=== PATIENT | male | born 1980 | race Caucasian/White ===

== ENCOUNTER 2022-07-05 15:54 | Emergency (ER) | payer MEDICAID, SELFPAY ==
[2022-07-05 16:00] VITALS: BP 132/79; PULSE 67; RESP 18; TEMP 36.6; O2SAT 98; BMI 35.5
--- NOTE | 2022-07-05 16:50 | ED.GENADULT ---
HPI - General Adult General Time Seen by Provider: 16:51 Date Seen: 07/05/22 Chief complaint: Skin/Abscess/Foreign Body Stated complaint: Issues with heart Time Seen by Provider: 07/05/22 15:58 Source: patient History of Present Illness HPI narrative: Reza is s 41-year-old male with no real past medical history presents emerged department with a skin abscess. Patient states that over the last 3 days he has had a skin abscess that is increased in size and pain on the upper left chest area, there has been increased redness as well, no drainage or bleeding, has been tender to touch. No history of any MRSA. He has not had anything like this in the past. Denies any fevers or chills he is otherwise doing well. No other concerns at this time. Review of Systems Status of ROS: Reports: 10 or more systems reviewed and unremarkable except as noted in History and below [facility] Social History Smoking Status: Never smoker Do you use any of these nicotine containing products: None Second hand tobacco smoke exposure: No How often do you have a drink containing alcohol: monthly or less How many standard drinks containing alcohol do you have on a typical day: 1 or 2 How often do you have six or more drinks on one occasion: Never AUDIT-C Alcohol total score: 1 Non-prescribed substance use: denies use service: No Exam Const: Vital Signs, click to edit/add: Vital Signs - 24 hr 07/05/22 16:00 Temperature 98 F Pulse Rate [Pulse Oximeter] 67 Respiratory Rate 18 Blood Pressure [Ri ght Upper Arm] 132/79 Pulse Oximetry 98 Oxygen Delivery Me thod Room Air Common normals: no apparent distress and oriented x3 HENMT: Common normals: normocephalic Head and scalp: normocephalic Eye: Common normals: PERRL Pupil: PERRL Neck & C-Spine: Common normals: full ROM Chest: Other: 3 cm skin abscess just above the left nipple, there is induration and fluctuance, surrounding erythema, tender to palpation Resp: Common normals: normal respiratory effort and clear to auscultation bilaterally Auscultation: clear to auscultation bilaterally Cardio: Common normals: S1 normal heart sound and S2 normal heart sound Heart sounds: S1 normal and S2 normal Back & Pelvis: Common normals: no thoracic nor lumbar tenderness Extremity: Common normals: normal to inspection Neuro: Common normals: oriented x3 Course Course Hospital Course: 4:15 PM: Workup will include incision and drainage. Likely obtain a wound culture. Please see procedure note. Reevaluation(s) Reevaluation #1: Incision and drainage complete, patient did well, wound culture sent, will be given additional cefuroxime 500 mg b.i.d. over the next 7 days for the surrounding erythema. He should follow up with his primary care provider over the next 7-10 days for recheck, return precautions given. Time: 16:53 Vital Signs Vital signs: Initial Vital Signs Temperature 98 F 07/05/22 16:00 Temperature Source Temporal Artery Scan 07/05/22 16:00 Pulse Rate 67 07/05/22 16:00 Pulse Rhythm 07/05/22 16:00 Respiratory Rate 18 07/05/22 16:00 Blood Pressure 132/79 07/05/22 16:00 Blood Pressure Mean 96 07/05/22 16:00 Blood Pressure Position Supine 07/05/22 16:00 Pulse Oximetry 98 07/05/22 16:00 Oxygen Delivery Method 07/05/22 16:00 Vital Signs Temperature 98 F 07/05/22 16:00 Pulse Rate 67 07/05/22 16:00 Respiratory Rate 18 07/05/22 16:00 Blood Pressure 132/79 07/05/22 16:00 Pulse Oximetry 98 07/05/22 16:00 Oxygen Delivery Method 07/05/22 16:00 Temperature 98 F 07/05/22 16:00 Pulse Rate 67 07/05/22 16:00 Respiratory Rate 18 07/05/22 16:00 Blood Pressure 132/79 07/05/22 16:00 Pulse Oximetry 98 07/05/22 16:00 Oxygen Delivery Method 07/05/22 16:00 Discharge Plan Discharge Clinical Impression: Abscess of chest wall Patient Disposition: Home, Self-Care Condition: Improved Instructions: Abscess (ED) Additional Instructions: To take the antibiotics twice daily for the next 7 days. Follow-up with primary care provider over the next 7-10 days as needed. Return precautions given. Activity Level: Activity as Tolerated Follow Up/Referrals: [facility] [Other] Stand Alone Forms: [facility] Info Instructions Procedures I/D Type: abscess Site: chest Pre procedure diagnosis: chest wall abscess Post procedure diagnosis: chest wall abscess Written consent by: patient Site marking: site marked Verification/time out: correct patient Name of person performing procedure: Cory Ruano Anesthesia I&D: lidocaine 1% and with Epi Amount of anesthesia used (mls): 2 Side (if applicable): left Technique: incised with #11 blade Amount of fluid expressed (mL): 10 Irrigation: No Packing used?: none Estimated blood loss (if any): less than 5mls Specimens removed (if any): wound culture. Conclusion: patient tolerated procedure
== END 2022-07-05 17:06 | disposition home or self-care (01) ==
PROVIDERS: Emergency Provider Student in an Organized Health Care Education/Training Program
DX: L02.213 Cutaneous abscess of chest wall (principal)
CPT/HCPCS: 10060; 87070; 87186; 99283; 99284

== ENCOUNTER 2022-07-12 12:28 | Emergency (ER) | payer MEDICAID, SELFPAY ==
[2022-07-12 12:48] VITALS: BP 132/85; PULSE 74; RESP 16; TEMP 37.1; O2SAT 96; BMI 32.7
--- NOTE | 2022-07-12 13:23 | ED.SKABFB ---
HPI - Skin/Abscess/Foreign Bdy General Chief complaint: Skin/Abscess/Foreign Body Stated complaint: Pimple on nose/painful/swollen Time Seen by Provider: 07/12/22 13:03 History of Present Illness HPI narrative: 41 yo man with c/o painful and swollen nose. admits that 2-3 days ago pulled a nose hair. Yesterday right side nose and area began swelling and has had increasing pain. Area pain as well. He says there is a pustule in his nose now. thinks it might need draining. Ibuprofen, acetaminophen does not help. Can not sleep. no fever. no pain with eye movement. no visual changes. new soreness and maybe swelling in the left upper neck area. no recurrent infections. Related Data Previous Rx's Medication Instructions Recorded doxycycline monohydrate 100 mg 100 mg PO BID for infection 8 days 07/12/22 capsule #16 caps hydrocodone 5 mg-acetaminophen 325 1 - 2 tab PO Q4-6H PRN pain #12 07/12/22 mg tablet tabs mupirocin 2 % topical ointment 1 applic topical TID infection 7 07/12/22 days #7 grams Review of Systems Status of ROS: Reports: 6 or more systems reviewed and unremarkable except as noted in History and below [facility] Social History Smoking Status: Never smoker Do you use any of these nicotine containing products: None Second hand tobacco smoke exposure: No How often do you have a drink containing alcohol: monthly or less How many standard drinks containing alcohol do you have on a typical day: 1 or 2 How often do you have six or more drinks on one occasion: Never AUDIT-C Alcohol total score: 1 Non-prescribed substance use: denies use service: No Exam Narrative: Exam Narrative: pleasant. carefully casually groomed. breathing easily. no stridor cn 2-12 intact, eomi is full and nt. no scleral injection. neck supple. uncomfortable to palp in left upper anterior lymph chain but without significant swelling/lymphadenopathy. skin is warm and dry. nose is mild to mod swollen jodee at the left and mild erythema extends on to the face about an inch. soreness up to the zygoma. inside the left nare is visible mod swelling superior and lateral and extending to the bridge. 2 very small points of purulence are visible at the lateral bina internally. very tender to palp. Const: Vital Signs, click to edit/add: Vital Signs - 24 hr 07/12/22 12:48 Temperature 98.8 F Pulse Rate [Pulse Oximeter] 74 Respiratory Rate 16 Blood Pressure [Le ft Upper Arm] 132/85 Pulse Oximetry 96 Oxygen Delivery Me thod Room Air Documenting provider has reviewed patient's vital signs: yes Course Course Hospital Course: benzocaine spray applied to cotton ball and placed into left nare. this provides some relief of discomfort. Consultations Consultation #1: contacted ENT to confirm tx and follow up. rec'd for oral abx and warm packs and maybe bactroban Vital Signs Vital signs: Initial Vital Signs Temperature 98.8 F 07/12/22 12:48 Temperature Source Temporal Artery Scan 07/12/22 12:48 Pulse Rate 74 07/12/22 12:48 Pulse Rhythm 07/12/22 12:48 Pulse Strength 3+ Normal 07/12/22 12:48 Respiratory Rate 16 07/12/22 12:48 Blood Pressure 132/85 07/12/22 12:48 Blood Pressure Mean 100 07/12/22 12:48 Blood Pressure Position Sitting 07/12/22 12:48 Pulse Oximetry 96 07/12/22 12:48 Oxygen Delivery Method 07/12/22 12:48 Vital Signs Temperature 98.8 F 07/12/22 12:48 Pulse Rate 74 07/12/22 12:48 Respiratory Rate 16 07/12/22 12:48 Blood Pressure 132/85 07/12/22 12:48 Pulse Oximetry 96 07/12/22 12:48 Oxygen Delivery Method 07/12/22 12:48 Temperature 98.8 F 07/12/22 12:48 Pulse Rate 74 07/12/22 12:48 Respiratory Rate 16 07/12/22 12:48 Blood Pressure 132/85 07/12/22 12:48 Pulse Oximetry 96 07/12/22 12:48 Oxygen Delivery Method 07/12/22 12:48 MDM - Skin/Abscess/Foreign Bdy MDM Narrative Medical decision making narrative: as requested can see if can obtain/release purulence. anesthetized as above. had offered regional injection of anesthetic as well. Mr. Bay preferred topical punctured with needle the 2 points of purulence but only small amount of blood obtained. did not place needle deep nor apply great deal of pressure. I'm not convinced that there is relievable abscess here. this all was quite painful but Mr. Bay tolerated it quite well. placed bacitracin. will though need to make sure staph, potentially mrsa, is covered. I don't believe that iv abx needed at this time. Discharge Plan Discharge Clinical Impression: Cellulitis of external nose Patient Disposition: Home, Self-Care Condition: Stable Additional Instructions: You will be receiving a different antibiotic ointment to apply 3 times daily. If getting markedly more red/swollen/painful/painful eye movement/fever, be seen. In this case return to the emergency department. ENT doctor available locally through [facility] is Dr. Braun In the future it would be better to trim hairs instead of pluck them. Can take up to 800 mg of ibuprofen per dose combined with the [place] prescribed today. Apply warm moist packs to this area 2-3 times daily over the next few days. Recibir? neeraj crema antibi?lynsey diferente para aplicar 3 veces al d?a. Si se pone notablemente m?s dixon/hinchado/doloroso/movimiento ocular doloroso/fiebre, regrese a la willi de emergencia. El m?dico otorrinolaring?logo disponible localmente a desiree?s de [facility] es el Dr. Braun En el futuro ser?a mejor recortar los pelos en lugar de arrancarlos. Puede kurt hasta 800 mg de ibuprofeno por dosis combinado con el [place] recetado hoy. Aplique compresas h?medas y tibias en esta ?ann 2 o 3 veces al d?a elliott los pr?ximos d?as. Prescriptions: New mupirocin 2 % ointment 1 applic topical TID 7 Days Qty: 7 0RF Rx Instructions: apple light layer into your nose hydrocodone-acetaminophen 5-325 mg tablet 1 - 2 tab PO Q4-6H PRN (Reason: pain) Qty: 12 0RF doxycycline monohydrate 100 mg capsule 100 mg PO BID 8 Days Qty: 16 0RF Follow Up/Referrals: Provider,Not a Local [Primary Care Provider] - Stand Alone Forms: [facility] Info Instructions
== END 2022-07-12 14:23 | disposition home or self-care (01) ==
PROVIDERS: Emergency Provider Family Medicine
DX: J34.0 Abscess, furuncle and carbuncle of nose (principal)
CPT/HCPCS: 99282; 99283

== ENCOUNTER 2023-01-29 21:04 | Emergency (ER) | payer MEDICAID, SELFPAY ==
[2023-01-29 21:16] VITALS: BP 143/84; PULSE 84; RESP 18; TEMP 37.2; O2SAT 99; BMI 34.0
[2023-01-29 22:19] VITALS: BP 135/78; PULSE 87; RESP 18; TEMP 36.9; O2SAT 99
[2023-01-29 22:20] VITALS: BP 135/78; PULSE 87; RESP 18; TEMP 36.9
--- NOTE | 2023-01-30 14:54 | ED_ITS ---
HPI - General Adult General Chief complaint: Skin/Abscess/Foreign Body Stated complaint: Fever, found pimple worried infected Time Seen by Provider: 01/29/23 21:39 History of Present Illness HPI narrative: 42-year-old man presenting to the emergency department with concern of infection in left armpit side area. Has had increasing redness and some swelling over the last couple of days. Increasing tenderness. Is also describing tenderness in the left neck area without sore throat that he feels is somehow connected to what is going on at his side. No fever. No drainage. They did does recount how he did have a, with sounds like a cyst, had gotten inflamed ultimately excised in the left upper chest/nipple area. 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 No treatments. Related Data Previous Rx's Medication Instructions Recorded cephalexin 500 mg capsule 500 mg PO TID 9 days #27 caps 01/29/23 Allergies Allergy/AdvReac Type Severity Reaction Status Date / Time No Known Drug Allergies Allergy Verified 01/29/23 21:19 Review of Systems Status of ROS: Reports: 6 or more systems reviewed and unremarkable except as noted in History and below [facility] Medical History No significant past medical history Surgical History No significant past surgical history Social History Smoking Status: Never smoker Do you use any of these nicotine containing products: None Second hand tobacco smoke exposure: No How often do you have a drink containing alcohol: monthly or less How many standard drinks containing alcohol do you have on a typical day: 1 or 2 How often do you have six or more drinks on one occasion: Never AUDIT-C Alcohol total score: 1 Non-prescribed substance use: denies use service: No Exam Narrative: Exam Narrative: Pleasant. NAD. Swallowing without difficulty. Breathing easily. Oropharynx is unremarkable. Neck is supple without appreciable lymphadenopathy. Left lower axillary upper chest wall area has a an inch and half oval area of erythema with palpable 1/2-3/4 inch firm tender swelling. I do not appreciate fluctuance. Not clear punctum. No purulence evident. There are some skin tags in the area. There is a small scar superior and lateral to the left areola where apparently had I&D done in the past. Const: Vital Signs, click to edit/add: Vital Signs - 24 hr 01/29/23 21:16 01/29/23 22:19 01/29/23 22:20 Temperature 99.0 F 98.4 F 98.4 F Pulse Rate [Right Pulse Oximeter] 84 87 87 Respiratory Rate 18 18 18 Blood Pressure [Ri ght Upper Arm] 143/84 H 135/78 135/78 Pulse Oximetry 99 99 Oxygen Delivery Me thod Room Air Room Air Documenting provider has reviewed patient's vital signs: yes Course Vital Signs Vital signs: Initial Vital Signs Temperature 99.0 F 01/29/23 21:16 Temperature Source Temporal Artery Scan 01/29/23 21:16 Pulse Rate 84 01/29/23 21:16 Respiratory Rate 18 01/29/23 21:16 Blood Pressure 143/84 H 01/29/23 21:16 Blood Pressure Mean 103 01/29/23 21:16 Blood Pressure Position Sitting 01/29/23 21:16 Pulse Oximetry 99 01/29/23 21:16 Oxygen Delivery Method Room Air 01/29/23 21:16 Vital Signs Temperature 99.0 F 01/29/23 21:16 Pulse Rate 84 01/29/23 21:16 Respiratory Rate 18 01/29/23 21:16 Blood Pressure 143/84 H 01/29/23 21:16 Pulse Oximetry 99 01/29/23 21:16 Oxygen Delivery Method Room Air 01/29/23 21:16 Temperature 98.4 F 01/29/23 22:20 Pulse Rate 87 01/29/23 22:20 Respiratory Rate 18 01/29/23 22:20 Blood Pressure 135/78 01/29/23 22:20 Pulse Oximetry 99 01/29/23 22:19 Oxygen Delivery Method Room Air 01/29/23 22:19 Medical Decision Making MDM Narrative Medical decision making narrative: I do not get a sense that this is an abscess yet. I do not think it is drainable. No treatments have been attempted. I would least be using topical antibiotic ointment and protecting from further irritation on the job. On the verge of needing oral antibiotics perhaps. Would monitor closely. Warm pack. Does not seem to be a situation where he suffers from hidradenitis suppurative or similar. See patient discharge plan. Discharge Plan Discharge Clinical Impression: Localized infection Patient Disposition: Home, Self-Care Condition: Stable Additional Instructions: As discussed, I would place warm moist packs to this area a few times daily over the next few days. If seems much worse in the next couple of days, an antibiotic will be waiting for you at your pharmacy. Keep protected with a large Band-Aid and change daily. Use antibiotic ointment for now. I think persistent irritation has contributed to this development. If seems to be expanding and with a softening center, might then be a candidate to be cut open. [place] se discuti?, colocar?a paquetes h?medos calientes en esta ?ann varias veces al d?a elliott los pr?ximos d?as. Si parece mucho peor en los pr?ximos d?as, un antibi?garry lo estar? esperando en negrete farmacia. Mant?ngase protegido con neeraj curita madison y c?mbiese diariamente. Use hung?ento antibi?garry por ahora. Creo que la irritaci?n persistente corona contribuido a jazmin desarrollo. Si parece estar expandi?ndose y con un centro suavizante, entonces podr?a ser un candidato para ser cortado. Prescriptions: New cephalexin 500 mg capsule 500 mg PO TID 9 Days Qty: 27 0RF Follow Up/Referrals: Provider,Not a Local [Primary Care Provider] - Stand Alone Forms: [facility] Info Instructions
== END 2023-01-29 22:20 | disposition home or self-care (01) ==
PROVIDERS: Emergency Provider Family Medicine
DX: L08.9 Local infection of the skin and subcutaneous tissue, unspecified (principal)
CPT/HCPCS: 99282; 99283

== ENCOUNTER 2023-05-03 22:30 | Emergency (ER) | payer MEDICAID, SELFPAY ==
[2023-05-03 22:48] VITALS: BP 128/76; PULSE 68; RESP 18; TEMP 36.6; O2SAT 96; BMI 35.5
--- NOTE | 2023-05-03 23:05 | ED_ITS ---
HPI - Extremity Injury (Lower) General Chief Complaint: Extremity Pain/Injury, Lower Stated Complaint: left leg pain Time Seen by Provider: 05/03/23 23:05 Related Data Previous Rx's Medication Instructions Recorded meclizine 25 mg tablet 25 mg PO QID #20 tabs 03/12/23 ondansetron HCl 4 mg tablet 4 mg PO Q6H #10 tabs 03/12/23 Allergies Allergy/AdvReac Type Severity Reaction Status Date / Time No Known Drug Allergies Allergy Verified 01/29/23 21:19 PFSH PFSH Medical History No significant past medical history Surgical History No significant past surgical history Social History Smoking Status: Never smoker Do you use any of these nicotine containing products: None Second hand tobacco smoke exposure: No How often do you have a drink containing alcohol: never How often do you have six or more drinks on one occasion: Never AUDIT-C Alcohol total score: 0 Non-prescribed substance use: denies use service: No Exam Const: Vital Signs, click to edit/add: Vital Signs - 24 hr 05/03/23 22:48 Temperature 97.9 F Pulse Rate [Pulse Oximeter] 68 Respiratory Rate 18 Blood Pressure [[facility] Upper Arm] 128/76 Pulse Oximetry 96 Course Vital Signs Vital signs: Initial Vital Signs Temperature 97.9 F 05/03/23 22:48 Temperature Source Temporal Artery Scan 05/03/23 22:48 Pulse Rate 68 05/03/23 22:48 Respiratory Rate 18 05/03/23 22:48 Blood Pressure 128/76 05/03/23 22:48 Blood Pressure Mean 93 05/03/23 22:48 Pulse Oximetry 96 05/03/23 22:48 Vital Signs Temperature 97.9 F 05/03/23 22:48 Pulse Rate 68 05/03/23 22:48 Respiratory Rate 18 05/03/23 22:48 Blood Pressure 128/76 05/03/23 22:48 Pulse Oximetry 96 05/03/23 22:48 Temperature 97.9 F 05/03/23 22:48 Pulse Rate 68 05/03/23 22:48 Respiratory Rate 18 05/03/23 22:48 Blood Pressure 128/76 05/03/23 22:48 Pulse Oximetry 96 05/03/23 22:48 Discharge Plan Discharge Prescriptions: No Action ondansetron HCl 4 mg tablet 4 mg PO Q6H Qty: 10 0RF meclizine 25 mg tablet 25 mg PO QID Qty: 20 0RF Follow Up/Referrals: Provider,Not a Local [Primary Care Provider] -
--- NOTE | 2023-05-03 23:06 | ED.GENADULT ---
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 He has pain in the left buttock area, goes down his leg into the calf. He denies any bowel or bladder issues. No numbness tingling. When he stands it is okay for while. The worst is if he tries to sit or changing positions. He denies any fevers chills, no significant history of problems like this before. No trauma or injury. No history of cancer. He is not diabetic, no chronic medications per questioning. He has been trying Tylenol and ibuprofen. He would like a work note for tomorrow if possible. He is concerned as to why this is happening. Symptoms have been present for about 5 days now and getting worse. Related Data Previous Rx's Medication Instructions Recorded meclizine 25 mg tablet 25 mg PO QID #20 tabs 03/12/23 ondansetron HCl 4 mg tablet 4 mg PO Q6H #10 tabs 03/12/23 Allergies Allergy/AdvReac Type Severity Reaction Status Date / Time No Known Drug Allergies Allergy Verified 01/29/23 21:19 Review of Systems Narrative: As per HPI [facility] PFS Medical History No significant past medical history Surgical History No significant past surgical history Social History Smoking Status: Never smoker Do you use any of these nicotine containing products: None Second hand tobacco smoke exposure: No How often do you have a drink containing alcohol: never How often do you have six or more drinks on one occasion: Never AUDIT-C Alcohol total score: 0 Non-prescribed substance use: denies use service: No Exam Const: Vital Signs, click to edit/add: Vital Signs - 24 hr 05/03/23 22:48 Temperature 97.9 F Pulse Rate [Pulse Oximeter] 68 Respiratory Rate 18 [facility] 128/76 Pulse Oximetry 96 Documenting provider has reviewed patient's vital signs: yes Common normals: no apparent distress, oriented x3, no limitations, healthy appearing, alert and well nourished General appearance: cooperative, comfortable (Unless he is making a position change, seems to have some discomfort), well kempt and well developed Nutritional appearance: overweight Other: Very pleasant 42-year-old gentleman. No midline tenderness over his back, no SI joint tenderness, no paraspinous tenderness. Can fully extend does seem to have some limitations with rotation and forward flexion. With the forward flexion he complains of pain in the back thigh on the left. He can heel and toe walk, gait is normal. Strength is 5/5 and symmetric in his lower extremities. States he feels normal light touch sensation. Neuro: Common normals: oriented x3 Sensorium/orientation: alert Psych: Appearance: well kempt Course Course Hospital Course: Did review with patient referral for physical therapy, he declines at this point and will follow up in clinic per his report. Vital Signs Vital signs: Initial Vital Signs Temperature 97.9 F 05/03/23 22:48 Temperature Source Temporal Artery Scan 05/03/23 22:48 Pulse Rate 68 05/03/23 22:48 Respiratory Rate 18 05/03/23 22:48 Blood Pressure 128/76 05/03/23 22:48 Blood Pressure Mean 93 05/03/23 22:48 Pulse Oximetry 96 05/03/23 22:48 Vital Signs Temperature 97.9 F 05/03/23 22:48 Pulse Rate 68 05/03/23 22:48 Respiratory Rate 18 05/03/23 22:48 Blood Pressure 128/76 05/03/23 22:48 Pulse Oximetry 96 05/03/23 22:48 Temperature 97.9 F 05/03/23 22:48 Pulse Rate 68 05/03/23 22:48 Respiratory Rate 18 05/03/23 22:48 Blood Pressure 128/76 05/03/23 22:48 Pulse Oximetry 96 05/03/23 22:48 Critical Care Time Critical Care Time Critical Care Time: No Discharge Plan Discharge Clinical Impression: Sciatica of left side Patient Disposition: Home, Self-Care Condition: Stable Instructions: Sciatica (ED), Lower Back Exercises (ED) Additional Instructions: Start prednisone and take as prescribed, recommend taking with food. The prednisone will be 1 pill twice a day for 5 days. Flexeril is a muscle relaxant, can use 1/2-1 pill 3 times a day as needed. If the full tablet does make you to tired, can cut the tablet in half and use half tablet. You can still take Tylenol 1000 mg 3 times a day baseline for pain for the next week or so. Can supplement with ibuprofen per bottle directions as needed for extra pain management. Follow-up in clinic within the next week, sooner if increasing pain. If you develop loss of bowel or bladder function, have motor weakness in this leg, do need emergent re-evaluation. Prescriptions: No Action ondansetron HCl 4 mg tablet 4 mg PO Q6H Qty: 10 0RF meclizine 25 mg tablet 25 mg PO QID Qty: 20 0RF Follow Up/Referrals: Provider,Not a Local [Primary Care Provider] - Stand Alone Forms: [employer] Info Instructions
[2023-05-03] MEDS: KETOROLAC 30 MG/ML inj IM (23:49)
== END 2023-05-03 23:50 | disposition home or self-care (01) ==
PROVIDERS: Emergency Provider Family Medicine
DX: M54.32 Sciatica, left side (principal)
CPT/HCPCS: 96372; 99283; J1885

== ENCOUNTER 2023-05-08 08:43 | Emergency (ER) | payer MEDICAID, SELFPAY ==
[2023-05-08 08:49] VITALS: BP 134/86; RESP 18; TEMP 36.8; O2SAT 98; BMI 34.5
[2023-05-08] MEDS: KETOROLAC 30 MG/ML inj IM (09:43)
--- NOTE | 2023-05-08 09:47 | ED_ITS ---
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 Patient states symptoms have been going on for about 5 days. Patient was seen in the emergency department at that time was started on prednisone and a muscle relaxer. He says this helped his symptoms but he minutes he misunderstood the provider at that time and thought we reschedule in the clinic appointment for him. So he has not followed up yet. He came back because the pain is not gone yet and he want to make sure no further imaging was necessary. Patient states all the pain seems to start in his gluteal region and radiates up to his hip and down his leg. Denies any back pain at this time. He does have some numbness to his left leg associated with that. He is not on any trauma but occurred amount of started the pain. Denies fevers, IV drug use, saddle anesthesia. He does admit he has been peeing frequently but states he does believe he is emptying when he does. He has not had any loss of bowel or bladder control. Related Data Previous Rx's Medication Instructions Recorded meclizine 25 mg tablet 25 mg PO QID #20 tabs 03/12/23 ondansetron HCl 4 mg tablet 4 mg PO Q6H #10 tabs 03/12/23 ketorolac 10 mg tablet 10 mg PO TID PRN pain 5 days #15 05/08/23 tabs Allergies Allergy/AdvReac Type Severity Reaction Status Date / Time No Known Drug Allergies Allergy Verified 01/29/23 21:19 Review of Systems Status of ROS: Reports: 6 or more systems reviewed and unremarkable except as noted in History and below [facility] Medical History No significant past medical history Surgical History No significant past surgical history Social History Smoking Status: Never smoker Do you use any of these nicotine containing products: None Second hand tobacco smoke exposure: No How often do you have a drink containing alcohol: never How often do you have six or more drinks on one occasion: Never AUDIT-C Alcohol total score: 0 Non-prescribed substance use: denies use service: No Exam Narrative: Exam Narrative: Const: Well-nourished, Well-developed, in mild distress Eyes: PERRL, no conjunctival injection, and symmetrical lids ENMT: Atraumatic external nose and ears. Moist mucous membranes. MSK:Extremities w/o deformity, Normal Active ROM, normal straight leg test, transfer patient around the piriformis on the left Skin: Warm, Dry. No rashes or lesions. Neuro: Normal Muscle tone, No focal neurological deficits. Psych: Awake, Alert, & Oriented x3. Appropriate mood and affect. Const: Vital Signs, click to edit/add: Vital Signs - 24 hr 05/08/23 08:49 Temperature 98.2 F Respiratory Rate 18 Blood Pressure [Ri ght Upper Arm] 134/86 Pulse Oximetry 98 Oxygen Delivery Me thod Room Air Course Vital Signs Vital signs: Initial Vital Signs Temperature 98.2 F 05/08/23 08:49 Temperature Source Temporal Artery Scan 05/08/23 08:49 Respiratory Rate 18 05/08/23 08:49 Blood Pressure 134/86 05/08/23 08:49 Blood Pressure Mean 102 05/08/23 08:49 Blood Pressure Position Sitting 05/08/23 08:49 Pulse Oximetry 98 05/08/23 08:49 Oxygen Delivery Method Room Air 05/08/23 08:49 Vital Signs Temperature 98.2 F 05/08/23 08:49 Respiratory Rate 18 05/08/23 08:49 Blood Pressure 134/86 05/08/23 08:49 Pulse Oximetry 98 05/08/23 08:49 Oxygen Delivery Method Room Air 05/08/23 08:49 Temperature 98.2 F 05/08/23 08:49 Respiratory Rate 18 05/08/23 08:49 Blood Pressure 134/86 05/08/23 08:49 Pulse Oximetry 98 05/08/23 08:49 Oxygen Delivery Method Room Air 05/08/23 08:49 Medical Decision Making MDM Narrative Medical decision making narrative: Patient is a 42-year-old male presents emergency department for left leg and gluteal pain. The symptoms appear to be consistent with piriformis syndrome. He has tenderness near the piriformis region. Patient is having no red flag symptoms and caudal equina is unlikely at this time. Patient states he is emptying his bladder when he does go so not believe he is having any retention. Straight leg test was negative unlikely be herniated disc especially concerned most the pain is in the gluteal region. Patient has for another prescription of prednisone by informed them that we do not like to put him on prednisone this long. He has been on for 5 days already and if the given the prescription and can cause other problems. He states he understands. He has been taking ibuprofen which will help with the pain for about 2 hours now that worse. I will give him prescription for Toradol. We will have the patient follow-up with primary care. He states he understands. We will work on secondary him a point Discharge Plan Discharge Clinical Impression: Piriformis syndrome Qualifiers: Laterality: left Qualified Code(s): G57.02 - Lesion of sciatic nerve, left lower limb Patient Disposition: Home, Self-Care Condition: Improved Instructions: Piriformis Syndrome (ED) Additional Instructions: Follow-up with primary care. Do stretches for piriformis syndrome as directed in your hands out. I gave you a prescription for Toradol. Follow up appointment is scheduled at the [facility] on 05/14 with a 9:45am appointment time. If you have any questions or need to reschedule, please call [phone]. [facility] [address] [place] [address] Prescriptions: New ketorolac 10 mg tablet 10 mg PO TID PRN (Reason: pain) 5 Days Qty: 15 0RF No Action ondansetron HCl 4 mg tablet 4 mg PO Q6H Qty: 10 0RF meclizine 25 mg tablet 25 mg PO QID Qty: 20 0RF Follow Up/Referrals: Provider,Not a Local [Primary Care Provider] - Stand Alone Forms: [employer] Info Instructions
== END 2023-05-08 10:13 | disposition home or self-care (01) ==
PROVIDERS: Emergency Provider Student in an Organized Health Care Education/Training Program
DX: G57.02 Lesion of sciatic nerve, left lower limb (principal)
CPT/HCPCS: 96372; 99282; 99283; 99284; J1885